=== PATIENT | female | born 1970 | race Caucasian/White ===

== ENCOUNTER 2017-05-04 11:05 | Emergency (ER) | payer BC, OTHER ==
--- NOTE | 2017-05-04 12:59 | EDPHY ---
H & P Stated Complaint: Sharp burning in epigastric area w/nausea/vomiting Time Seen by Provider: 05/04/17 12:57 HPI/ROS: CHIEF COMPLAINT: Abdominal pain and vomiting HISTORY OF PRESENT ILLNESS: The patient is a 46 y/o female complaining of 2 episodes of vomiting onset two days ago with associated abdominal pain this morning. She was admitted in 2015 for the same type of pain and had a HIDA scan and upper endoscopy that showed mild erosive gastritis and mild duodenitis suspected to be NSAID-induced. She was discharged on Protonix and referred to GI. GI ran further testing and decided to treat her symptoms as Celiac disease. She discontinued Protonix and avoided gluten with complete resolution of her symptoms until New Year's Darcy, 2 days ago, when she began vomiting. She had no pain at this time and notes she did not consume alcohol prior to onset. Symptoms resolved until this morning when she began vomiting repeatedly with associated sharp epigastric pain radiating to her back. Upon assessment, her symptoms have completely resolved and she feels back to baseline. She denies chest pain, fever, urinary symptoms, dyspnea, recent illness, recent trauma. REVIEW OF SYSTEMS: Constitutional: No fever, no chills Eyes: No visual changes ENT: No sore throat Respiratory: No cough, no shortness of breath Cardiac: No chest pain Gastrointestinal: see HPI Genitourinary: No hematuria, no dysuria Musculoskeletal: No leg pain or swelling Skin: No rash Neurological: No headache, no numbness, no weakness Psychiatric: No depression - Personal History LMP (Females 10-55): Hysterectomy Current Tetanus Diphtheria and Acellular Pertussis (TDAP): Yes - Medical/Surgical History PMH: PMH includes: 1. Hysterectomy and sacral colopexy 2016 2. Celiac's - followed by GI of [facility] Prior medical records reviewed including admission 02/26/17 for similar symptoms. HIDA scan normal. Endoscopy showed mild erosive gastritis and mild duodenitis. Hx Asthma: No Hx Chronic Respiratory Disease: No Hx Diabetes: No Hx Cardiac Disease: No Hx Renal Disease: No Hx Cirrhosis: No Hx Alcoholism: No Hx HIV/AIDS: No Hx Splenectomy or Spleen Trauma: No Other PMH: kidney stone, gerd, tubaligation - Social History Smoking Status: Former smoker Additional Social History: Former smoker. Lives in [place]. Employed. - Physical Exam Exam: General Appearance: Alert, no distress Eyes: Pupils equal and round, no conjunctival pallor or injection ENT, Mouth: Mucous membranes moist Neck: Normal inspection Respiratory: Lungs are clear to auscultation Cardiovascular: Regular rate and rhythm Gastrointestinal: Abdomen is soft and non- tender Neurological: A&O, nonfocal, normal gait Skin: Warm and dry, no rash Extremities: Nontender, no pedal edema Psychiatric: Mood and affect normal Constitutional: Initial Vital Signs Temperature (C) 36.4 C 05/04/17 11:14 Heart Rate 98 05/04/17 11:14 Respiratory Rate 24 H 05/04/17 11:14 Blood Pressure 125/75 H 05/04/17 11:14 O2 Sat (%) 99 05/04/17 11:14 O2 Delivery Mode Room Air Allergies/Adverse Reactions: gluten Allergy (Verified 05/04/17 11:13) Home Medications: Medication Instructions Recorded Ondansetron Odt [Zofran Odt 4 mg 4 mg PO Q4 PRN #6 tab 05/04/17 (*)] Pantoprazole Sodium [Protonix 40mg 40 mg PO DAILY #30 tab 05/04/17 (*)] Medical Decision Making ED Course/Re-evaluation: This is a 46 y/o female with a history of prior admission for abdominal pain and vomiting with normal HIDA and mild gastritis/duodenitis on endoscopy in 2015. Those original symptoms resolved when she stopped consuming gluten. She has not been using Protonix since then. She presents for evaluation of 2 episodes of vomiting over the last 2 days with associated abdominal pain today. She is completely asymptomatic by time of assessment and has a completely benign abdomen on exam. Plan for 40mg IV Protonix and PO trial. Labs normal, no evidence of hepatitis, pancreatitis, infection. Continues to be asymptomatic with benign abdomen exam on reassessment. Advised restarting Protonix and following up with GI. Tolerating oral fluids well. She will receive script for Zofran and Protonix here. Care and follow up instructions discussed. Return precautions given. She is comfortable with this plan. Differential Diagnosis: Differential diagnosis includes though it is not limited to appendicitis, cholecystitis, diverticulitis, pyelonephritis, bowel perforation, small bowel obstruction. - Data Points Laboratory Results: Laboratory Results 05/04/17 11:42 05/04/17 11:42 05/04/17 05/04/17 11:42 11:42 WBC 8.98 10^3/uL 10^3/uL (3.80-9.50) RBC 5.53 10^6/uL H 10^6/uL (4.18-5.33) Hgb 16.4 g/dL H g/dL (12.6-16.3) Hct 48.0 % H % (38.0-47.0) MCV 86.8 fL fL (81.5-99.8) MCH 29.7 pg pg (27.9-34.1) MCHC 34.2 g/dL g/dL (32.4-36.7) RDW 12.6 % % (11.5-15.2) Plt Count 292 10^3/uL 10^3/uL (150-400) MPV 10.8 fL fL (8.7-11.7) Neut % (Auto) 75.7 % H % (39.3-74.2) Lymph % (Auto) 17.7 % % (15.0-45.0) [place] % (Auto) 5.2 % % (4.5-13.0) Eos % (Auto) 0.7 % % (0.6-7.6) Baso % (Auto) 0.4 % % (0.3-1.7) Nucleat RBC Rel Count 0.0 % % (0.0-0.2) Absolute Neuts (auto) 6.79 10^3/uL H 10^3/uL (1.70-6.50) Absolute Lymphs (auto) 1.59 10^3/uL 10^3/uL (1.00-3.00) Absolute Monos (auto) 0.47 10^3/uL 10^3/uL (0.30-0.80) Absolute Eos (auto) 0.06 10^3/uL 10^3/uL (0.03-0.40) Absolute Basos (auto) 0.04 10^3/uL 10^3/uL (0.02-0.10) Absolute Nucleated RBC 0.00 10^3/uL 10^3/uL (0-0.01) Immature Gran % 0.3 % % (0.0-1.1) Immature Gran # 0.03 10^3/uL 10^3/uL (0.00-0.10) Sodium 143 mEq/L mEq/L (134-144) Potassium 3.9 mEq/L mEq/L (3.5-5.2) Chloride 107 mEq/L mEq/L (97-110) Carbon Dioxide 20 mEq/l L mEq/l (22-31) Anion Gap 16 mEq/L mEq/L (8-16) BUN 15 mg/dL mg/dL (7-23) Creatinine 0.9 mg/dL mg/dL (0.6-1.0) Estimated GFR > 60 Glucose 96 mg/dL mg/dL (70-100) Calcium 11.4 mg/dL H mg/dL (8.5-10.4) Phosphorus 1.2 mg/dL L mg/dL (2.5-4.5) Total Bilirubin 0.8 mg/dL mg/dL (0.1-1.4) Conjugated Bilirubin 0.3 mg/dL mg/dL (0.0-0.5) Unconjugated Bilirubin 0.5 mg/dL mg/dL (0.0-1.1) AST 28 IU/L IU/L (14-46) ALT 42 IU/L IU/L (9-52) Alkaline Phosphatase 86 IU/L IU/L (38-126) Total Protein 7.5 g/dL g/dL (6.3-8.2) Albumin 4.4 g/dL g/dL (3.5-5.0) Lipase 130 IU/L IU/L (23-300) Medications Given: Discontinued Medications Sodium Chloride (Ns) 1,000 mls @ 0 mls/hr IV ONCE ONE; Wide Open PRN Reason: Protocol Stop: 05/04/17 13:08 Last Admin: 05/04/17 13:15 Dose: 1,000 mls Pantoprazole Sodium (Protonix) 40 mg IVP EDNOW ONE Stop: 05/04/17 13:08 Last Admin: 05/04/17 13:15 Dose: 40 mg Departure - Departure Disposition: Home, Routine, Self-Care Clinical Impression: Gastritis Qualifiers: Gastritis type: other gastritis Chronicity: acute Gastritis bleeding: presence of bleeding unspecified Qualified Code(s): K29.00 - Acute gastritis without bleeding Condition: Good Instructions: Ondansetron (By mouth), Pantoprazole (By mouth), Gastritis (ED) Additional Instructions: 1. Restart 40mg Protonix daily as directed. 2. Use Zofran as prescribed when needed for nausea and vomiting. 3. Follow a clear liquid diet for the next 24 hours. Advance diet as tolerated. 4. Follow up with your rewinder operator helper at [facility] in the next week. 5. Avoid NSAIDs (like ibuprofen) while you are symptomatic. 6. Return to the ED for worsening of condition. Referrals: Jae Aranda MD [Medical Doctor] - As per Instructions Prescriptions: Ondansetron Odt [Zofran Odt 4 mg (*)] 4 mg PO Q4 PRN #6 tab PRN Reason: Nausea Pantoprazole Sodium [Protonix 40mg (*)] 40 mg PO DAILY #30 tab Report Scribed for: Mary Joshi Report Scribed by: Alida Navarro Date of Report: 05/04/17 Time of Report: 13:17 Physician Review and Approval Statement: 05/04/17 13:17 Portions of this note were transcribed by a manager medical affairs. I personally performed a history, physical exam, medical decision making, and confirmed accuracy of information the transcribed note.
[2017-05-04] MEDS ORDERED: PANTOPRAZOLE SODIUM 40 MG VIAL IVP ONE (13:07)
[2017-05-04] MEDS ORDERED: NS 1,000 ML IV ONE (13:07)
[2017-05-04 13:18] VITALS: RESP 16
[2017-05-04 13:43] LABS: PLATELET COUNT 292 10^3/uL (150-400)
[2017-05-04 14:40] VITALS: BP 121/76; PULSE 73; TEMP 97.9; O2SAT 100
== END 2017-05-04 14:38 | disposition home or self-care (01) ==
DX: K29.00 Acute gastritis without bleeding (principal); E86.9 Volume depletion, unspecified; Z87.891 Personal history of nicotine dependence; Z90.710 Acquired absence of both cervix and uterus; Z98.51 Tubal ligation status
CPT/HCPCS: 96374

== ENCOUNTER 2018-01-17 09:21 | Emergency (ER) | payer BC ==
[2018-01-17] MEDS ORDERED: ONDANSETRON 4 MG/2 ML VIAL IVP ONE (09:35)
[2018-01-17] MEDS ORDERED: NS 1,000 ML IV ONE (09:36)
[2018-01-17] MEDS ORDERED: MAG HYDROX/AL HYDROX/SIMETH 30 ML UDCUP PO ONE (09:49)
[2018-01-17] MEDS ORDERED: LIDOCAINE 2% VISCOUS 15 ML UDCUP PO ONE (09:49)
[2018-01-17] MEDS ORDERED: HYOSCYAMINE SULFATE 0.125 MG TAB PO ONE (09:49)
[2018-01-17] MEDS ORDERED: fentaNYL 100 MCG/2 ML INJ IVP ONE (09:49)
--- NOTE | 2018-01-17 09:53 | EDPHY ---
H & P Time Seen by Provider: 01/17/18 09:35 HPI/ROS: CHIEF COMPLAINT: Left-sided abdominal pain HISTORY OF PRESENT ILLNESS: Intermittent for 5 days, worse this morning at 8: 30 a.m.. Now severe. Left upper quadrant and a little bit epigastric, radiates the left back. No history of fall injury or trauma. Not better worse with anything. Not positional. Similar to the 1st time she had these symptoms back in 2016, but not identical. Symptoms currently severe. REVIEW OF SYSTEMS: Eye: no change in vision ENT: no sore throat Cardiac: no chest pain or syncope Pulmonary: no cough or SOB Abdomen: HPI Musculoskeletal: no back pain Skin: no rash Neuro: no headache Constitutional: no fever : no urinary symptoms A comprehensive 10 point review of systems is otherwise negative aside from elements mentioned in the history of present illness. PAST MEDICAL HISTORY: Consultation by Dr. Aranda dated 02/27/[address] scan that was done for abdominal distention and pain with eating at that time. At the time she also had kidney ultrasound that was normal, negative HIDA scan during that hospitalization. Repeat right upper quadrant ultrasound. Gastroesophageal reflux, kidney stones, shoulder surgery x3, left knee arthroscopy, , hysterectomy. 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 Moderately uncomfortable. Eyes: No scleral icterus. ENT, Mouth: Normal mucous membranes. Respiratory: Normal respiratory effort, breath sounds equal, lungs are clear to auscultation. Cardiovascular: Regular rate and rhythm. Gastrointestinal: Abdomen is soft and non tender. No rebound or guarding, no focal tenderness. Specifically no lower abdominal tenderness. Neurological: Alert, face symmetric, normal motor and sensory in extremities. Skin: Warm and dry, no rashes. Musculoskeletal: No peripheral edema. Psychiatric: Not agitated. Emergency Department course/MDM: Zofran 4, fentanyl 100, GI cocktail. CT scanning discussed and consented to evaluate for renal colic. She is uncomfortable and moving around restless fashion on the bed. Abdominal pain left-sided radiates to the back. 1046: CT per [place], query just passed 1.6mm stone @ [facility]. Re-examined and results discussed at 11:15 a.m.. She has some recurrent pain but does not want any pain medication, would prefer to be monitored and if it stabilizes with go home and follow up with GI as an outpatient, she saw Dr. Griffith before. 1210: pain minimal, stable for DC. Emphasized to the patient that without hydronephrosis I am not 100% sure that the stone on CT at the left UVJ represents the reason for her symptoms. She also had a lot of belching and burping which would be atypical for renal colic. Patient declined additional pain medication. She will follow up with [facility] as an outpatient, she has no local primary care physician. At this point I think it is unlikely she has an acute emergent medical or surgical condition. Smoking Status: Former smoker Constitutional: Initial Vital Signs Temperature (C) 36.5 C 01/17/18 09:24 Heart Rate 102 H 01/17/18 09:24 Respiratory Rate 17 01/17/18 09:24 Blood Pressure 121/91 H 01/17/18 09:24 O2 Sat (%) 98 01/17/18 09:24 O2 Delivery Mode Room Air Allergies/Adverse Reactions: gluten Allergy (Verified 01/17/18 09:23) Home Medications: Medication Instructions Recorded NK [No Known Home Meds] 01/17/18 Medical Decision Making - Diagnostics Imaging Results: Imaging Impressions Abdomen/Pelvis CT 01/17/18 09:50 Impression: 1. Bilateral nephrolithiasis with recently passed stone near the left UVJ measuring 1.6 mm. 2. Top normal common bile duct size measuring 7 mm. Consider correlating with LFTs if patient has right upper quadrant symptoms. Findings and recommendations discussed with SANDOVAL GARLAND at 1045 hour, 2017. Imaging: Discussed imaging studies w/ scheduling administrator Radiologist Differential Diagnosis: Differential considered including but not limited to pancreatitis, intestinal perforation, renal colic, UTI, ovarian torsion or cyst. - Data Points Laboratory Results: Laboratory Results 01/17/18 09:35 01/17/18 09:35 01/17/18 01/17/18 01/17/18 10:00 09:35 09:35 WBC 6.21 10^3/uL 10^3/uL (3.80-9.50) RBC 5.17 10^6/uL 10^6/uL (4.18-5.33) Hgb 15.0 g/dL g/dL (12.6-16.3) Hct 44.5 % % (38.0-47.0) MCV 86.1 fL fL (81.5-99.8) MCH 29.0 pg pg (27.9-34.1) MCHC 33.7 g/dL g/dL (32.4-36.7) RDW 12.5 % % (11.5-15.2) Plt Count 273 10^3/uL 10^3/uL (150-400) MPV 10.9 fL fL (8.7-11.7) Neut % (Auto) 65.5 % % (39.3-74.2) Lymph % (Auto) 26.9 % % (15.0-45.0) [place] % (Auto) 5.3 % % (4.5-13.0) Eos % (Auto) 1.8 % % (0.6-7.6) Baso % (Auto) 0.3 % % (0.3-1.7) Nucleat RBC Rel Count 0.0 % % (0.0-0.2) Absolute Neuts (auto) 4.07 10^3/uL 10^3/uL (1.70-6.50) Absolute Lymphs (auto) 1.67 10^3/uL 10^3/uL (1.00-3.00) Absolute Monos (auto) 0.33 10^3/uL 10^3/uL (0.30-0.80) Absolute Eos (auto) 0.11 10^3/uL 10^3/uL (0.03-0.40) Absolute Basos (auto) 0.02 10^3/uL 10^3/uL (0.02-0.10) Absolute Nucleated RBC 0.00 10^3/uL 10^3/uL (0-0.01) Immature Gran % 0.2 % % (0.0-1.1) Immature Gran # 0.01 10^3/uL 10^3/uL (0.00-0.10) Sodium 141 mEq/L mEq/L (135-145) Potassium 4.9 mEq/L mEq/L (3.3-5.0) Chloride 108 mEq/L mEq/L (97-110) Carbon Dioxide 23 mEq/l mEq/l (22-31) Anion Gap 10 mEq/L mEq/L (8-16) BUN 17 mg/dL mg/dL (7-23) Creatinine 1.0 mg/dL mg/dL (0.6-1.0) Estimated GFR 59 Glucose 109 mg/dL H mg/dL (70-100) Calcium 10.7 mg/dL H mg/dL (8.5-10.4) Phosphorus 1.2 mg/dL L mg/dL (2.5-4.5) Total Bilirubin 0.5 mg/dL mg/dL (0.1-1.4) Conjugated Bilirubin 0.1 mg/dL mg/dL (0.0-0.5) Unconjugated Bilirubin 0.4 mg/dL mg/dL (0.0-1.1) AST 25 IU/L IU/L (14-46) ALT 28 IU/L IU/L (9-52) Alkaline Phosphatase 82 IU/L IU/L (38-126) Total Protein 6.8 g/dL g/dL (6.3-8.2) Albumin 4.1 g/dL g/dL (3.5-5.0) Lipase 83 IU/L IU/L (23-300) Urine Color YELLOW Urine Appearance MODERATELY TURBID Urine pH 8.0 H (5.0-7.5) Ur Specific [place] 1.014 (1.002-1.030) Urine Protein NEGATIVE (NEGATIVE) Urine Ketones NEGATIVE (NEGATIVE) Urine Blood NEGATIVE (NEGATIVE) Urine Nitrate NEGATIVE (NEGATIVE) Urine Bilirubin NEGATIVE (NEGATIVE) Urine Urobilinogen NEGATIVE EU EU (0.2-1.0) Ur Leukocyte Esterase NEGATIVE (NEGATIVE) Urine Glucose NEGATIVE (NEGATIVE) Medications Given: Discontinued Medications Al Hydroxide/Mg Hydroxide (Maalox Susp) 30 ml PO ONCE ONE Stop: 01/17/18 09:50 Last Admin: 18 09:54 Dose: 30 ml Fentanyl (Sublimaze) 100 mcg IVP EDNOW ONE Stop: 01/17/18 09:50 Last Admin: 18 09:54 Dose: 100 mcg Hyoscyamine Sulfate (Levsin, Hyomax-Sl) 0.25 mg PO ONCE ONE Stop: 18 09:50 Last Admin: 18 09:54 Dose: 0.25 mg Sodium Chloride (Ns) 1,000 mls @ 0 mls/hr IV EDNOW ONE; Brigid Open PRN Reason: Protocol Stop: 01/17/18 09:37 Last Admin: 01/17/18 09:39 Dose: 1,000 mls Lidocaine (Lidocaine 2% Viscous) 15 ml PO ONCE ONE Stop: 01/17/18 09:50 Last Admin: 01/17/18 09:54 Dose: 15 ml Ondansetron HCl (Zofran) 4 mg IVP EDNOW ONE Stop: 01/17/18 09:36 Last Admin: 01/17/18 09:39 Dose: 4 mg Departure - Departure Disposition: Home, Routine, Self-Care Clinical Impression: Abdominal pain Qualifiers: Abdominal location: left upper quadrant Qualified Code(s): R10.12 - Left upper quadrant pain Condition: Good Instructions: Acute Abdominal Pain (ED) Referrals: Mayra Griffith MD [Medical Doctor] - As per Instructions
[2018-01-17 10:16] LABS: PLATELET COUNT 273 10^3/uL (150-400)
[2018-01-17 12:30] VITALS: BP 103/65
== END 2018-01-17 12:29 | disposition home or self-care (01) ==
DX: R10.12 Left upper quadrant pain (principal); E86.9 Volume depletion, unspecified; Z87.891 Personal history of nicotine dependence
CPT/HCPCS: 96374; J2405; J3010